=== PATIENT | male | born 1975 | race Caucasian/White ===

== ENCOUNTER 2018-08-31 11:55 | Emergency (ER) | payer OTHER ==
[2018-08-31 12:07] VITALS: BP 120/80; PULSE 77; TEMP 98.3; BMI 21.5
--- NOTE | 2018-08-31 12:13 | PDOC ---
History of Present Illness - General Chief Complaint: Back Pain Stated Complaint: UPPER BACK PAIN Time Seen by Provider: 08/31/18 12:10 History Source: Patient Exam Limitations: No Limitations - History of Present Illness Initial Comments: 43 yo M history spina bifida presents with thoracic back pain and cervical neck pain. He states that he woke up with the pain this morning, has had difficulty stretching to relieve it. Denies weakness, numbness. Pain is worse with movements of the shoulders and with moving his head towards his chest. No prior similar symptoms. Past History - Past Medical History Allergies/Adverse Reactions: Allergies Allergy/AdvReac Type Severity Reaction Status Date / Time clindamycin Allergy Intermediate Rash Verified 08/31/18 11:57 Penicillins Allergy Verified 08/31/18 11:57 Home Medications: Ambulatory Orders Clonazepam [Klonopin] 0.5 mg PO BID 12/26/15 Duloxetine HCl [Cymbalta] 60 mg PO DAILY 12/26/15 Lamotrigine [Lamictal] 100 mg PO DAILY 12/26/15 Anemia: No Asthma: No Cancer: No Cardiac Disorders: No CVA: No COPD: No CHF: No Dementia: No Diabetes: No GI Disorders: Yes Disorders: No HTN: No Hypercholesterolemia: No Liver Disease: No Psychiatric Problems: Yes (anxiety) Seizures: No Thyroid Disease: No - Surgical History Abdominal Surgery: No Appendectomy: Yes Cardiac Surgery: No Cholecystectomy: No Lung Surgery: No Neurologic Surgery: No Orthopedic Surgery: (bilateral reconstruction deformity) - Immunization History Immunization Up to Date: Yes (12/26/15) - Suicide/Smoking/Psychosocial Hx Smoking History: Never smoked Have you smoked in the past 12 months: No Number of Cigarettes Smoked Daily: 10 Information on smoking cessation initiated: No 'Breaking Loose' booklet given: 01/23/16 Hx Alcohol Use: No Drug/Substance Use Hx: No Substance Use Type: None Hx Substance Use Treatment: No Review of Systems - Review of Systems Able to Perform ROS?: Yes Comments:: GENERAL/CONSTITUTIONAL: No fever or chills. No weakness. HEAD, EYES, EARS, NOSE AND THROAT: No change in vision. No ear pain or discharge. No sore throat. CARDIOVASCULAR: No chest pain or shortness of breath. RESPIRATORY: No cough, wheezing, or hemoptysis. GASTROINTESTINAL: No nausea, vomiting, diarrhea or constipation. GENITOURINARY: No dysuria, frequency, or change in urination. MUSCULOSKELETAL: No joint or muscle swelling or pain. +Neck/back pain. SKIN: No rash NEUROLOGIC: No headache, vertigo, loss of consciousness, or change in strength/ sensation. ENDOCRINE: No increased thirst. No abnormal weight change. HEMATOLOGIC/LYMPHATIC: No anemia, easy bleeding, or history of blood clots. ALLERGIC/IMMUNOLOGIC: No hives or skin allergy. *Physical Exam - Vital Signs Last Vital Signs Temp Pulse Resp BP Pulse Ox 98.3 F 77 20 120/80 98 08/31/18 11:56 08/31/18 11:56 08/31/18 11:56 08/31/18 11:56 08/31/18 11:56 - Physical Exam Comments: GENERAL: Awake, alert, and fully oriented, in no acute distress HEAD: No signs of trauma EYES: PERRLA, EOMI, sclera anicteric, conjunctiva clear ENT: Auricles normal inspection, hearing grossly normal, nares patent, oropharynx clear without exudates. Moist mucosa NECK: Normal ROM, supple, no lymphadenopathy, JVD, or masses LUNGS: Breath sounds equal, clear to auscultation bilaterally. No wheezes, and no crackles HEART: Regular rate and rhythm, normal S1 and S2, no murmurs, rubs or gallops ABDOMEN: Soft, nontender, normoactive bowel sounds. No guarding, no rebound. No masses EXTREMITIES: Normal range of motion, no edema. No clubbing or cyanosis. No cords, erythema, or tenderness NEUROLOGICAL: Cranial nerves II through XII grossly intact. Normal speech, normal gait SKIN: Warm, Dry, normal turgor, no rashes or lesions noted. SPINE: No midline tenderness. +Tenderness to paraspinal soft tissue in the upper thoracic spine and to the rhomboid muscles. Moderate Sedation - Procedure Monitoring Vital Signs: Procedure Monitoring Vital Signs Temperature 98.3 F 08/31/18 11:56 Pulse Rate 77 08/31/18 11:56 Respiratory Rate 20 08/31/18 11:56 Blood Pressure 120/80 08/31/18 11:56 O2 Sat by Pulse Oximetry (%) 98 08/31/18 11:56 Medical Decision Making - Medical Decision Making XR reviewed via phone with Dr. Graves, no acute findings. Patient has secured an appointment with his PMD immediately, will see her now. *DC/Admit/Observation/Transfer Diagnosis at time of Disposition: Back pain Qualifiers: Back pain location: thoracic back pain Chronicity: unspecified Back pain laterality: unspecified Qualified Code(s): M54.6 - Pain in thoracic spine - Discharge Dispostion Disposition: HOME Condition at time of disposition: Stable Decision to Admit order: No - Referrals - Patient Instructions Printed Discharge Instructions: DI for Neck Pain, DI for Thoracic Back Pain - Post Discharge Activity
== END 2018-08-31 13:26 | disposition home or self-care (01) ==
LOC: FER 11:55
DX: M54.6 Pain in thoracic spine (principal); F41.9 Anxiety disorder, unspecified; Q05.9 Spina bifida, unspecified
CPT/HCPCS: 72050-TC-FY; 72070-TC-FY; 99282-25

== ENCOUNTER 2018-12-31 13:59 | Emergency (ER) | payer OTHER ==
--- NOTE | 2018-12-31 14:05 | PDOC ---
History of Present Illness <Calvin Nieto - Last Filed: 12/31/18 14:32> - General History Source: Patient Exam Limitations: No Limitations - History of Present Illness Initial Comments: 12/31/18 14:53 The patient is a 43-year-old male with a past medical history significant for spina bifida presents to the emergency department with a laceration to the left thumb. The patient reports he was cutting wood with a 4in knife when he accidentally stabbed himself on the left thumb. The patient reports the incident happened about 20 minute [employer]. The patient reports he immediately washed the wound with water, then with hydrogen proxide before wrapping it tightly with a gauze. The patient denies the use of blood thinners. Denies tingling, numbness or loss of sensation to the thumb. The patient reports he cleaned the knife with soap prior to cutting the wood. The patient reports his last tetanus was in 2016. Allergies: clindamycin and penicillins Social history: reports the use of tobacco, denies the use of alcohol or recreational drugs. Surgical history: None reported PCP: Dr. Raisa Cameron. <Sweta Mayer - Last Filed: 12/31/18 14:53> - General Chief Complaint: Laceration Stated Complaint: LEFT THUMB LACERATION Time Seen by Provider: 12/31/18 14:03 Past History - Past Medical History Anemia: No Asthma: No Cancer: No Cardiac Disorders: No CVA: No COPD: No CHF: No Dementia: No Diabetes: No GI Disorders: Yes Disorders: No HTN: No Hypercholesterolemia: No Liver Disease: No Psychiatric Problems: Yes (anxiety) Seizures: No Thyroid Disease: No - Surgical History Abdominal Surgery: No Appendectomy: Yes Cardiac Surgery: No Cholecystectomy: No Lung Surgery: No Neurologic Surgery: No Orthopedic Surgery: (bilateral reconstruction deformity) - Immunization History Immunization Up to Date: Yes (12/26/15) - Suicide/Smoking/Psychosocial Hx Smoking History: Never smoked Have you smoked in the past 12 months: No Number of Cigarettes Smoked Daily: 10 'Breaking Loose' booklet given: 01/23/16 Hx Alcohol Use: No Drug/Substance Use Hx: No Substance Use Type: None Hx Substance Use Treatment: No <Calvin Nieto - Last Filed: 12/31/18 14:32> <Sweta Mayer - Last Filed: 12/31/18 14:53> - Past Medical History Allergies/Adverse Reactions: Allergies Allergy/AdvReac Type Severity Reaction Status Date / Time clindamycin Allergy Intermediate Rash Verified 12/31/18 14:00 Penicillins Allergy Verified 12/31/18 14:00 Home Medications: Ambulatory Orders Clonazepam [Klonopin] 0.5 mg PO BID 12/26/15 Duloxetine HCl [Cymbalta] 60 mg PO DAILY 12/26/15 Review of Systems - Review of Systems Integumentary: Yes: See HPI Neurological: No: Tingling, Weakness <Calvin Nieto - Last Filed: 12/31/18 14:32> *Physical Exam - Vital Signs Last Vital Signs Temp Pulse Resp BP Pulse Ox 97.7 F 81 18 105/70 100 12/31/18 14:00 12/31/18 14:00 12/31/18 14:00 12/31/18 14:00 12/31/18 14:00 - Physical Exam Comments: 12/31/18 14:52 GENERAL: The patient is awake, alert, and fully oriented, in no acute distress. HEAD:[Normal with no signs of trauma. EYES: Pupils equal, round and reactive to light, extraocular movements intact, sclera anicteric, conjunctiva clear. EXTREMITIES: 5/5 flexion and extension at the MCP/IP joint, cap relieff brisk, sensation intact. Normal range of motion, no edema. NEUROLOGICAL: Normal speech, normal gait. PSYCH: Normal mood, normal affect. SKIN: +1.5 cm curvey linear superficial laceration to the dorsal aspect of the proximal phalanx of the left thumb, no deep tissue exposure. Warm, Dry, normal turgor, no rashes or lesions noted. 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 He immediately irrigated the wound with soap and water and peroxide, presents for evaluation. Denies any motor or sensory deficit, tetanus was last updated 2015. Vitals are within normal limits Bleeding resolved Left dorsal initial laceration over the proximal phalanx as described, no deep tissue exposure or injury, neurovascularly intact with 5 out of 5 flexion/ extension at MCP and IP joints. No other injuries 43-year-old male with superficial left thumb laceration, neurovascular intact. No indication for imaging Steri-Strips applied with good approximation and hemostasis Gauze bandage applied Wound precautions discussed, understands return criteria <Calvin Nieto - Last Filed: 12/31/18 14:32> *DC/Admit/Observation/Transfer <Calvin Nieto - Last Filed: 12/31/18 14:32> - Attestations Scribe Attestion: 12/31/18 14:52 Documentation prepared by Sweta Mayer, acting as medical office administrator for Calvin Nieto MD. <Sweta Mayer - Last Filed: 12/31/18 14:53> Diagnosis at time of Disposition: Laceration of left thumb without complication Qualifiers: Encounter type: initial encounter Qualified Code(s): S61.012A - Laceration without foreign body of left thumb without damage to nail, initial encounter - Discharge Dispostion Disposition: HOME Condition at time of disposition: Stable - Patient Instructions Printed Discharge Instructions: DI for Laceration Repair Additional Instructions: Activity as tolerated. Stay hydrated. Keep the wound clean and dry, avoiding soaking or scrubbing. Maintain current dressing for 48 hours, then apply bacitracin twice daily until fully healed. The Steri-Strips will slowly come off within the next week, otherwise can be removed. Tylenol 1000 mg every 8 hours and/or ibuprofen 600 mg every 8 hours as needed for pain. Continue your medications as previously prescribed by your physician. You should follow up with your primary doctor as needed regarding today's emergency department visit. Return to the emergency department for any new or concerning symptoms, particularly persistent or uncontrollable bleeding, redness or swelling or pus, new pain or fevers or chills, weakness or numbness.
[2018-12-31 14:08] VITALS: BP 105/70; PULSE 81; TEMP 97.7; BMI 22.3
== END 2018-12-31 14:45 | disposition home or self-care (01) ==
LOC: FER 13:59
DX: S61.012A Laceration without foreign body of left thumb without damage to nail, initial encounter (principal); W26.0XXA Contact with knife, initial encounter; Y93.89 Activity, other specified; Y92.9 Unspecified place or not applicable; Q05.9 Spina bifida, unspecified; F41.9 Anxiety disorder, unspecified
CPT/HCPCS: 99283-25

== ENCOUNTER 2019-03-10 19:39 | Emergency (ER) | payer OTHER | END 2019-03-10 20:16 | disposition home or self-care (01) | LOC: FER 19:39 ==

== ENCOUNTER 2020-06-28 23:08 | Emergency (ER) | payer OTHER ==
[2020-06-28 23:20] VITALS: BP 126/77; PULSE 86; TEMP 98.6; BMI 22.3
--- NOTE | 2020-06-28 23:23 | PDOC ---
History of Present Illness - General Chief Complaint: Pain Stated Complaint: Wasp Bite Time Seen by Provider: 06/28/20 23:21 History Source: Patient Exam Limitations: No Limitations - History of Present Illness Initial Comments: 06/28/20 23:21 This is a 45-year-old male who comes in complaining of wasp sting 2 days ago. Patient has some swelling to the dorsum of his hand. Otherwise patient denies any complaints. Allergies: as per nursing notes Past Medical History: none Social history: Lives with family. No smoking. No alcohol. No illicit drugs. Surgical history: None General: No fevers or chills, no weakness, no weight loss HEENT: No change in vision. No sore throat,. No ear pain CardioVascular: no chest discomfort. No shortness of breath Respiratory:No cough, or wheezing. Gastrointestinal: no nausea, vomiting, diarrhea or constipation, No rectal bleeding Genitourinary: No dysuria, hematuria, or frequency Musculoskeletal: No joint or muscle pain or swelling Neurologic: No headache, vertigo, dizziness or loss of consciousness Psychiatric: nor depression Skin: No rashes or easy bruising Endocrine: no increased thirst or abnormal weight change Allergic: no skin or latex allergy All other systems reviewed and normal GENERAL: The patient is awake, alert, and fully oriented, in no acute distress. HEENT:Head is normal with no signs of trauma. Eyes: Pupils equal, round and reactive to light, Ears, and Throat are normal. Neck is supple. No Lymphadenopathy. EXTREMITIES:atraumatic, Normal range of motion, no edema. Right hand: There is some swelling to the dorsum of the hand consistent with a wasp sting. NEUROLOGICAL: Normal speech, normal gait. PSYCH: Normal mood, normal affect. SKIN: Warm, Dry, normal turgor, no rashes or lesions noted. Assessment and plan: Patient is a 45-year-old male with a wasp sting. Patient was reassured that the reaction he is having is normal and was told to continue to take some Benadryl and follow-up with his doctor as needed Past History - Medical History Allergies/Adverse Reactions: Allergies Allergy/AdvReac Type Severity Reaction Status Date / Time clindamycin Allergy Intermediate Rash Verified 06/28/20 23:13 Penicillins Allergy Verified 06/28/20 23:13 Home Medications: Ambulatory Orders Clonazepam [Klonopin] 0.5 mg PO BID 12/26/15 Duloxetine HCl [Cymbalta] 60 mg PO DAILY 12/26/15 Anemia: No Asthma: No Cancer: No Cardiac Disorders: No CVA: No COPD: No CHF: No Dementia: No Diabetes: No GI Disorders: Yes Disorders: No HTN: No Hypercholesterolemia: No Liver Disease: No Psychiatric Problems: Yes (anxiety) Seizures: No Thyroid Disease: No - Surgical History Abdominal Surgery: No Appendectomy: Yes Cardiac Surgery: No Cholecystectomy: No Lung Surgery: No Neurologic Surgery: No Orthopedic Surgery: (bilateral reconstruction deformity) - Immunization History TDAP Vaccination: Yes (2015) Immunization Up to Date: Yes (12/26/15) - Psycho-Social/Smoking History Smoking History: Current every day smoker Have you smoked in the past 12 months: Yes Number of Cigarettes Smoked Daily: 5 Information on smoking cessation initiated: No 'Breaking Loose' booklet given: 12/31/18 - Substance Abuse Hx (Audit-C & DAST Scrn) How often the patient has a drink containing alcohol: Never Score: In Men: 4 or > Positive; In Women: 3 or > Positive: 0 Screen Result (Pos requires Nsg. Audit-10AR): Negative In the last yr the pt used illegal drug/Rx for NonMed reason: No Score: Yes response is considered Positive: 0 Screen Result (Positive result requires Nsg. DAST-10): Negative *Physical Exam - Vital Signs Last Vital Signs Temp Pulse Resp BP Pulse Ox 98.6 F 86 18 126/77 99 06/28/20 23:16 06/28/20 23:16 06/28/20 23:16 06/28/20 23:16 06/28/20 23:16 Discharge - Discharge Information Problems reviewed: Yes Clinical Impression/Diagnosis: Wasp sting Qualifiers: Encounter type: initial encounter Injury intent: accidental or unintentional Qualified Code(s): T63.461A - Toxic effect of venom of wasps, accidental (unintentional), initial encounter Condition: Good Disposition: HOME - Admission No - Follow up/Referral - Patient Discharge Instructions Additional Instructions: You can continue to take Benadryl as needed for the itching the swelling will resolve over the next week or so. Return to the emergency department immediately with ANY new, persistent or worsening symptoms. Continue any medications as previously prescribed by your physician. You should follow up with your primary doctor as soon as possible regarding today's emergency department visit. . Please make sure your doctor reviews the results of your emergency evaluation. Thank you for coming to the Emergency Department today for your care. It was a pleasure to see you today. Please note that your evaluation is INCOMPLETE until you follow-up with your doctor. - Post Discharge Activity
--- OUTSIDE RECORDS SUMMARY | 2020-06-29 06:35 | XMS ---
:1975 [facility] Support Name Relationship Address Phone UE Unavailable Unavailable Unavailable LEONA SANCHEZ SIGNIFICANT OTHER [address] [facility] [place] [address] Re-disclosure Warning The records that you are about to access may contain information from federally- assisted alcohol or drug abuse programs. If such information is present, then the following federally mandated warning applies: This information has been disclosed to you from records protected by federal confidentiality rules (42 CFR part 2). The federal rules prohibit you from making any further disclosure of this information unless further disclosure is expressly permitted by the written consent of the person to whom it pertains or as otherwise permitted by 42 CFR part 2. A general authorization for the release of medical or other information is NOT sufficient for this purpose. The Federal rules restrict any use of the information to criminally investigate or prosecute any alcohol or drug abuse patient.The records that you are about to access may contain highly sensitive health information, the redisclosure of which is protected by Article 27-F of the [facility] Public Health law. If you continue you may haveaccess to information: Regarding HIV / AIDS; Provided by facilities licensed or operated by the [facility] Office of Mental Health; or Provided by the [facility] Office for People With Developmental Disabilities. If such information is present, then the following [facility] mandated warning applies: This information has been disclosed to you from confidential records which are protected by state law. State law prohibits you from making any further disclosure of this information without the specific written consent of the person to whom it pertains, or as otherwise permitted by law. Any unauthorized further disclosure in violation of state law may result in a fine or assisted sentence or both. A general authorization for the release of medical or other information is NOT sufficient authorization for further disclosure. Insurance Providers Payer name Policy type Policy ID Covered Covered constitution party's Policy P jose / Coverage constitution party ID relationship to August Inf ormation type august [place] [id number] SP [id number] [facility] [place]
== END 2020-06-28 23:29 | disposition home or self-care (01) ==
LOC: FER 23:08
DX: T63.461A Toxic effect of venom of wasps, accidental (unintentional), initial encounter (principal)
CPT/HCPCS: 99281-25